=== PATIENT | male | born 1980 | race Caucasian/White ===

== ENCOUNTER 2016-12-04 07:14 | Emergency (ER) | payer SELFPAY ==
[~2016-12-04 07:14] MED LIST: TYLENOL500 MG PO
[2016-12-04] MEDS ORDERED: NO HOME MEDICATION XX (07:25)
[2016-12-04] MEDS ORDERED: NORCO 5-325 TA1 EACH PO (08:08)
== END 2016-12-04 08:25 ==
LOC: EDMED 07:14
DX: S92.334A Nondisplaced fracture of third metatarsal bone, right foot, initial encounter for closed fracture (principal); F17.200 Nicotine dependence, unspecified, uncomplicated; W20.8XXA Other cause of strike by thrown, projected or falling object, initial encounter; Y92.69 Other specified industrial and construction area as the place of occurrence of the external cause; Y99.0 Civilian activity done for income or pay

== ENCOUNTER 2016-12-18 08:33 | Emergency (ER) | payer SELFPAY ==
[~2016-12-18 08:33] MED LIST changes: +NO HOME MEDICATION XX; +NORCO 5-325 TA1 EACH PO
== END 2016-12-18 09:57 ==
LOC: EDMED 08:33
DX: S92.331D Displaced fracture of third metatarsal bone, right foot, subsequent encounter for fracture with routine healing (principal); F17.200 Nicotine dependence, unspecified, uncomplicated; W19.XXXD Unspecified fall, subsequent encounter